=== PATIENT | male | born 1975 ===

== ENCOUNTER → 2018-01-31 | Outpatient (CLI) | payer OTHER | END | disposition home or self-care (01) | LOC: RAD 10:02 | DX: M54.5 Low back pain (principal); D64.89 Other specified anemias; E55.9 Vitamin D deficiency, unspecified; E03.8 Other specified hypothyroidism; E78.2 Mixed hyperlipidemia; R73.02 Impaired glucose tolerance (oral); R80.8 Other proteinuria; I10 Essential (primary) hypertension; R07.89 Other chest pain ==